=== PATIENT | male | born 1950 | race Caucasian/White ===

== ENCOUNTER 2022-05-15 18:55 | Emergency (ER) | payer MEDICARE, BC ==
[2022-05-15] MEDS ORDERED: Sodium Chloride 0.9% 10 ML Syringe FLUSH PRN (19:07)
[2022-05-15 19:45] LABS: ESTIMATED GFR 91 mL/min (>60)
== END 2022-05-15 20:44 | disposition home or self-care (01) ==
LOC: JD.ED 18:55
DX: R07.89 Other chest pain (principal); M54.2 Cervicalgia; F17.210 Nicotine dependence, cigarettes, uncomplicated; Z88.0 Allergy status to penicillin; Z79.82 Long term (current) use of aspirin; Z79.899 Other long term (current) drug therapy
CPT/HCPCS: 36415; 71045; 71045-26; 80053; 83735; 83880; 84484; 85025; 85610; 85730; 93005; 99285

== ENCOUNTER 2024-10-01 07:32 | Day surgery (SDC) | payer MEDICARE, BC ==
[~2024-10-01 07:32] MED LIST: Cefuroxime 10 MG/ML SYRINGE EYERT SCH
[2024-10-01] MEDS: Polymyxin B/Trimethoprim 10 ML Bottle EYERT SCH (08:00)
[2024-10-01] MEDS: Brimonidine 0.2% Ophth Soln 5 ML Bottle EYERT SCH (08:05)
[2024-10-01] MEDS: Phenylephrine 2.5% Ophth Soln 2 ML Bot EYERT SCH (08:10)
[2024-10-01] MEDS: Tropicamide 1% Ophth Soln 3 ML Bottle EYERT SCH (08:15)
[2024-10-01] MEDS: Pilocarpine 4% Ophth Soln 15 ML Bot EYERT SCH (08:28)
[2024-10-01] MEDS: Lidocaine 1% PF 2 ML SDV INJECT SCH (08:28)
[2024-10-01] MEDS: Tetracaine HCl/PF 0.5% 4 ML Bottle EYEBOTH SCH (08:28)
[2024-10-01] MEDS: Cefuroxime 10 MG/ML SYRINGE EYERT SCH (09:28)
== END 2024-10-01 09:36 ==
LOC: JD.SDS 07:32
PROVIDERS: ATTEND Ophthalmology
DX: H25.811 Combined forms of age-related cataract, right eye (principal); H43.812 Vitreous degeneration, left eye; H35.3131 Nonexudative age-related macular degeneration, bilateral, early dry stage; H35.363 Drusen (degenerative) of macula, bilateral; H16.103 Unspecified superficial keratitis, bilateral; H16.223 Keratoconjunctivitis sicca, not specified as Sjogren's, bilateral; I10 Essential (primary) hypertension; E78.2 Mixed hyperlipidemia; F17.200 Nicotine dependence, unspecified, uncomplicated; Z79.899 Other long term (current) drug therapy; Z88.0 Allergy status to penicillin
CPT/HCPCS: 66984; A9270; J0697; C1780; J3490